=== PATIENT | female | born 1980 | race Caucasian/White ===

== ENCOUNTER → 2016-05-04 | Outpatient (CLI) | payer OTHER | LOC: FIMAGING 09:24 | PROVIDERS: ATTEND Obstetrics & Gynecology | DX: Z12.39 Encounter for other screening for malignant neoplasm of breast (principal); N63 Unspecified lump in breast | CPT/HCPCS: G0204 ==

== ENCOUNTER → 2016-09-28 | Outpatient (CLI) | payer OTHER | LOC: BMCIMAGING 14:45 | PROVIDERS: ATTEND Family Medicine | DX: Z13.820 Encounter for screening for osteoporosis (principal) ==

== ENCOUNTER → 2016-10-24 | Outpatient (CLI) | payer OTHER | LOC: FIMAGING 08:24 | PROVIDERS: ATTEND Physician Assistant | DX: R13.10 Dysphagia, unspecified (principal) ==

== ENCOUNTER 2016-12-16 12:33 | Emergency (ER) | payer OTHER ==
[2016-12-16 12:42] VITALS: TEMP 98.1
--- NOTE | 2016-12-16 13:03 | CPEKG ---
Heart Rate: 67 RR Interval: 896 P-R Interval: 111 QRSD Interval: 84 QT Interval: 412 QTC Interval: 435 P [place]: 0 QRS [place]: 67 T Wave [place]: 41 EKG Severity - ABNORMAL ECG - EKG Impression: SINUS RHYTHM EKG Impression: CONSIDER LEFT VENTRICULAR HYPERTROPHY Electronically Signed By: Milly Hair 16-Dec-2016 15:22:20
--- NOTE | 2016-12-16 13:18 | EDPHY ---
H & P Stated Complaint: Intermittent CP over the last few weeks - getting worse. Time Seen by Provider: 12/16/16 13:17 - Personal History LMP (Females 10-55): 1-7 Days Ago Current Tetanus Diphtheria and Acellular Pertussis (TDAP): Yes - Medical/Surgical History Hx Chronic Respiratory Disease: No Hx Diabetes: No Hx Cardiac Disease: No Hx Renal Disease: No Hx Cirrhosis: No Hx Alcoholism: No Hx HIV/AIDS: No Hx Splenectomy or Spleen Trauma: No Other PMH: Denies - Social History Smoking Status: Never smoked Constitutional: Initial Vital Signs Temperature (C) 36.7 C 12/16/16 12:38 Heart Rate 63 12/16/16 12:38 Respiratory Rate 16 12/16/16 12:38 Blood Pressure 149/96 H 12/16/16 12:38 O2 Sat (%) 99 12/16/16 12:38 O2 Delivery Mode Room Air Allergies/Adverse Reactions: clindamycin Allergy (Verified 12/16/16 12:42) Home Medications: Medication Instructions Recorded Lamictal 12/16/16 Medical Decision Making ED Course/Re-evaluation: CHIEF COMPLAINT: Chest pain HISTORY OF PRESENT ILLNESS: The patient is a 36 y/o female with a history of anorexia complaining of a 1-minute period of sharp chest pain that woke her from sleep last night. She felt associated "burning behind the sternum." She's had similar fleeting pain over the last few weeks that she attributed to musculoskeletal pain from working out. She is unable to recreate the pain with palpation and denies associated dyspnea or nausea. Yesterday evening while dancing she developed the same intense pain and it lasted for about one minute. She felt anxious and was concerned it could be related to hypoglycemia due to her history of anorexia so she ate some food. She felt a little better, but continued to feel some dull discomfort in the background. She felt normal upon waking this morning. She had a normal stress test this summer and biked 17 miles and ran 10 miles yesterday. No history of hypertension, hyperlipidemia, diabetes, or cardiac disease. She is planning to go into an eating disorder rehab center soon. Her PCP, Dr. Estrella, would like her to be discharged from here directly to the rehab center. The patient is still trying to figure out if she will go to the inpatient center or only going to the day rehab center. REVIEW OF SYSTEMS: A 10 point review of systems was performed and is negative with the exception of the elements mentioned in the history of present illness. PHYSICAL EXAM: HR, BP, O2 Sat, RR. Temp noted General Appearance: Alert, well hydrated, appropriate, and non-toxic appearing. Head: Atraumatic without scalp tenderness or obvious injury Eyes: Pupils equal, round, reactive to light and accommodation, EOMI, no trauma , no injection. Nose: Atraumatic, no rhinorrhea, clear. Throat: Mucus membranes moist. Neck: Supple, nontender, no lymphadenopathy. Respiratory: No retractions, no distress, no wheezes, and no accessory muscle use. Lungs are clear to auscultation bilaterally. Cardiovascular: Regular rate and rhythm, no murmurs, rubs, or gallops. Good capillary refill all extremities. Gastrointestinal: Abdomen is soft, nontender, non-distended, no masses, no rebound, no guarding, no peritoneal signs. Musculoskeletal: Normal active ROM of all extremities, atraumatic. Neurological: Alert, appropriate, and interactive. The patient has non-focal cranial nerves, motor, sensory, and cerebellar exam. Skin: No rashes, good turgor, no nodules on palpation. Past medical history: Anorexia with previous episodes of hypoglycemia going into [facility] eating disorder rehab center in [place]. Past surgical history: denies Family history: noncontributory Social history: Works as a physical therapist. Works out regularly. PCP: Dr. Estrella DIAGNOSTICS/PROCEDURES/CRITICAL CARE TIME: The 12 lead EKG was interpreted by myself. Sinus mechanism rate 67. See hard copy and/or "tracemaster" electronic copy for interpretation. DIFFERENTIAL DIAGNOSIS: The differential diagnosis for the patient's chest pain included but was not limited to myocardial ischemia, pulmonary embolus, chest wall pain, pleural inflammation, and pulmonary infectious causes. MEDICAL DECISION MAKING: This is a 36 y/o female with a history of anorexia who presents for evaluation following a few 1-minute episodes of chest pain over the last day. Her exam is unremarkable. I do not suspect cardiac etiology for her symptoms, but plan for EKG and cardiac labs to rule out. IV established and labs drawn. 1452: Reassessed patient and discussed work up. Her labs and EKG are completely normal. She would like to be discharged and will follow up with her therapist and PCP regarding plan for rehab follow up. - Data Points Laboratory Results: Laboratory Results 12/16/16 13:01 12/16/16 13:01 12/16/16 12/16/16 12/16/16 13:01 13: 13:01 WBC 7.66 10^3/uL 10^3/uL (3.80-9.50) RBC 4.79 10^6/uL 10^6/uL (4.18-5.33) Hgb 16.0 g/dL g/dL (12.6-16.3) Hct 46.1 % % (38.0-47.0) MCV 96.2 fL fL (81.5-99.8) MCH 33.4 pg pg (27.9-34.1) MCHC 34.7 g/dL g/dL (32.4-36.7) RDW 12.4 % % (11.5-15.2) Plt Count 262 10^3/uL 10^3/uL (150-400) MPV 10.0 fL fL (8.7-11.7) Neut % (Auto) 67.0 % % (39.3-74.2) Lymph % (Auto) 26.4 % % (15.0-45.0) Mcdonald % (Auto) 5.6 % % (4.5-13.0) Eos % (Auto) 0.4 % L % (0.6-7.6) Baso % (Auto) 0.5 % % (0.3-1.7) Nucleat RBC Rel Count 0.0 % % (0.0-0.2) Absolute Neuts (auto) 5.13 10^3/uL 10^3/uL (1.70-6.50) Absolute Lymphs (auto) 2.02 10^3/uL 10^3/uL (1.00-3.00) Absolute Monos (auto) 0.43 10^3/uL 10^3/uL (0.30-0.80) Absolute Eos (auto) 0.03 10^3/uL 10^3/uL (0.03-0.40) Absolute Basos (auto) 0.04 10^3/uL 10^3/uL (0.02-0.10) Absolute Nucleated RBC 0.00 10^3/uL 10^3/uL (0-0.01) Immature Gran % 0.1 % % (0.0-1.1) Immature Gran # 0.01 10^3/uL 10^3/uL (0.00-0.10) D-Dimer < 0.27 ug/mLFEU ug/mLFEU (0.00-0.50) Sodium 141 mEq/L mEq/L (134-144) Potassium 4.3 mEq/L mEq/L (3.5-5.2) Chloride 101 mEq/L mEq/L (97-110) Carbon Dioxide 25 mEq/l mEq/l (22-31) Anion Gap 15 mEq/L mEq/L (8-16) BUN 11 mg/dL mg/dL (7-23) Creatinine 0.9 mg/dL mg/dL (0.6-1.0) Estimated GFR > 60 Glucose 97 mg/dL mg/dL (70-100) Calcium 10.0 mg/dL mg/dL (8.5-10.4) Magnesium 2.0 mg/dL mg/dL (1.6-2.3) Troponin I < 0.012 ng/mL ng/mL (0.000-0.034) NT-Pro-B Natriuret Pep 56 pg/mL pg/mL (0-125) Departure - Departure Disposition: Home, Routine, Self-Care Clinical Impression: Chest pain Qualifiers: Chest pain type: other chest pain Qualified Code(s): R07.89 - Other chest pain Condition: Good Instructions: Chest Wall Pain (ED) Additional Instructions: Follow up with your primary care provider as needed in the next 2-3 days. Return to the ED for any worsening of condition. Referrals: Aster Estrella MD [Primary Care Provider] - As per Instructions Report Scribed for: Felix Adams Report Scribed by: Odette Guillory Date of Report: 12/16/16 Time of Report: 13:46
[2016-12-16 13:53] LABS: % IMMATURE GRANULYOCYTES 0.1 % (0.0-1.1); ABSOLUTE IMMATURE GRANULOCYTES 0.01 10^3/uL (0.00-0.10); ADD DIFF? NO; ADD MORPH? NO; ADD SCAN? NO; ATYPICAL LYMPHOCYTE FLAG 10 (0-99); FRAGMENT RBC FLAG 0 (0-99); HEMATOCRIT 46.1 % (38.0-47.0); LEFT SHIFT FLG 0 (0-99); LIPEMIA HEMOLYSIS FLAG 90 (0-99); MEAN CELL HEMOGLOBIN 33.4 pg (27.9-34.1); MEAN CELL HEMOGLOBIN CONCENTR. 34.7 g/dL (32.4-36.7); MEAN CELL VOLUME 96.2 fL (81.5-99.8); PLATELET CLUMPS FLAG 0 (0-99); PLATELET COUNT 262 10^3/uL (150-400); RED BLOOD CELL COUNT 4.79 10^6/uL (4.18-5.33); RED CELL DISTRIBUTION WIDTH 12.4 % (11.5-15.2)
[2016-12-16 14:30] LABS: TROPONIN I < 0.012 ng/mL (0.000-0.034)
[2016-12-16 14:49] LABS: ANION GAP 15 mEq/L (8-16); CARBON DIOXIDE 25 mEq/l (22-31); CHLORIDE 101 mEq/L (97-110); CREATININE 0.9 mg/dL (0.6-1.0); GLOMERULAR FILTRATION RATE > 60; GLUCOSE 97 mg/dL (70-100); POTASSIUM 4.3 mEq/L (3.5-5.2); SODIUM 141 mEq/L (134-144)
[2016-12-16 15:25] VITALS: BP 128/99; PULSE 66; RESP 18; O2SAT 100
== END 2016-12-16 15:25 | disposition home or self-care (01) ==
DX: R07.89 Other chest pain (principal)

== ENCOUNTER → 2017-07-21 | Outpatient (CLI) | payer OTHER | LOC: CIMAGING 09:08 | PROVIDERS: ATTEND Podiatrist | DX: S92.414A Nondisplaced fracture of proximal phalanx of right great toe, initial encounter for closed fracture (principal) | CPT/HCPCS: 73630-PO ==

== ENCOUNTER → 2017-07-31 | Outpatient (CLI) | payer OTHER | LOC: CIMAGING 14:25 | PROVIDERS: ATTEND Podiatrist | DX: S92.414D Nondisplaced fracture of proximal phalanx of right great toe, subsequent encounter for fracture with routine healing (principal) | CPT/HCPCS: 73630-PO ==

== ENCOUNTER → 2017-08-28 | Outpatient (CLI) | payer OTHER | LOC: CIMAGING 13:11 | PROVIDERS: ATTEND Podiatrist | DX: S92.414D Nondisplaced fracture of proximal phalanx of right great toe, subsequent encounter for fracture with routine healing (principal) | CPT/HCPCS: 73630-PO ==

== ENCOUNTER → 2018-04-12 | Outpatient (CLI) | payer OTHER | LOC: FIMAGING 10:49 | PROVIDERS: ATTEND Obstetrics & Gynecology | DX: Z12.31 Encounter for screening mammogram for malignant neoplasm of breast (principal) ==